=== PATIENT | male | born 1980 | race Hispanic/Latino ===

== ENCOUNTER 2017-09-09 10:02 | Emergency (ER) | payer BC ==
[2017-09-09] MEDS ORDERED: DEXAMETHASONE SOD PHOSPHATE 10MG/ML 1ML VIAL ONE (11:27)
[2017-09-09] MEDS ORDERED: IPRATROPIUM/ALBUTEROL SULFATE 3 ML SOLUTION IH ONE (11:36)
== END 2017-09-09 12:23 | disposition home or self-care (01) ==
LOC: EDH 10:02
DX: J20.9 Acute bronchitis, unspecified (principal); I10 Essential (primary) hypertension; Z88.0 Allergy status to penicillin; Z98.890 Other specified postprocedural states
CPT/HCPCS: 94640; 96372; 99283; J1100

== ENCOUNTER 2019-01-23 14:00 | Emergency (ER) | payer BC ==
[2019-01-23 15:10] LABS: RAPID GROUP A STREP NEGATIVE (NEGATIVE)
[2019-01-23] MEDS ORDERED: CLONIDINE HCL 0.1 MG TABLET ONE (15:26)
== END 2019-01-23 16:41 | disposition home or self-care (01) ==
LOC: EDH 14:00
DX: J06.9 Acute upper respiratory infection, unspecified (principal); I10 Essential (primary) hypertension; Z88.0 Allergy status to penicillin
CPT/HCPCS: 87804; 87880

== ENCOUNTER 2020-10-16 06:32 | Day surgery (SDC) | payer BC ==
[2020-10-10 10:58] LABS: BASOPHILS % (AUTO) 0.8 % (0.0-5.0); EOSINOPHILS % (AUTO) 2.4 % (0.0-8.0); HEMATOCRIT 34.7 % (42-54); LYMPHOCYTES % (AUTO) 19.3 % (21.0-51.0); MEAN CORPUSCULAR HEMOGLOBIN 29.2 pg (27.0-33.0); MEAN CORPUSCULAR VOLUME 85.9 fL (79-99); MONOCYTES % (AUTO) 6.1 % (3.0-13.0); NEUTROPHILS % (AUTO) 71.1 % (40.0-77.0); PLATELET COUNT (AUTO) 339 K/uL (130-400); RED BLOOD CELL COUNT(AUTO) 4.04 MIL/uL (4.50-6.20); RED CELL DISTRIBUTION WIDTH 12.5 % (11.0-15.5); WHITE BLOOD COUNT (AUTO) 6.2 K/uL (4.8-10.8)
[2020-10-10 11:24] LABS: CREATININE 3.9 mg/dL (0.5-1.5); POTASSIUM 4.1 mmol/L (3.5-5.1)
[2020-10-13 10:13] VITALS: BP 160/99
[~2020-10-16] VITALS: Ht 165.1 cm; Wt 65.3 kg
[2020-10-16] VITALS (18 sets, daily range): BP systolic 115–178; BP diastolic 58–120
[~2020-10-16 06:32] MED LIST: ATOR10 PO; CARV12.511 PO; CLINDAMYCIN 900 MG/D5% WATER 50 ML IV SCH; CLON0.5T4 PO; LEVO50CA4 PO; MINO2.5T3 PO; OLME40TA18 PO
[2020-10-16] MEDS ORDERED: LACTATED RINGERS 1000ML 1,000 ML IV ONE (07:15)
[2020-10-16] MEDS ORDERED: MIDAZOLAM HCL 1 MG/ML 2ML VIAL ONE (07:47)
[2020-10-16] MEDS ORDERED: SUCCINYLCHOLINE CHLORIDE 20 MG/ML 10 ML VIAL ONE (08:58)
[2020-10-16] MEDS ORDERED: LIDOCAINE PF 2% 5ML ABBOJECT ONE (08:58)
[2020-10-16] MEDS ORDERED: PROPOFOL 10 MG/ML 20ML VIAL IV ONE (08:59)
[2020-10-16] MEDS ORDERED: ROCURONIUM 10MG/1ML SYR 10 MG/ML ML ONE (09:00)
[2020-10-16] MEDS ORDERED: FENTANYL CITRATE PF 50 MCG/1 ML 2ML VIAL ONE (09:00)
[2020-10-16] MEDS ORDERED: LABETALOL HCL 5 MG/ML 20ML VIAL IV ONE (13:11)
[2020-10-16] MEDS ORDERED: GLYCOPYRROLATE 1 MG/5 ML SYRINGE ONE ×2 (13:17→13:32)
[2020-10-16] MEDS ORDERED: EPHEDRINE SULFATE 50 MG/ML AMPULE ONE (13:22)
[2020-10-16] MEDS ORDERED: BUPIVACAINE/PF 0.5% 30ML VIAL ONE (13:31)
[2020-10-16] MEDS ORDERED: NEOSTIGMINE 5MG/5ML SYR IV ONE (13:32)
== END 2020-10-16 15:43 | disposition home or self-care (01) ==
LOC: DAH 06:32
PROVIDERS: ATTEND Surgery
DX: K42.9 Umbilical hernia without obstruction or gangrene (principal); Z20.822 Contact with and (suspected) exposure to COVID-19; I10 Essential (primary) hypertension; E07.9 Disorder of thyroid, unspecified; E78.5 Hyperlipidemia, unspecified; Z88.0 Allergy status to penicillin; Z98.890 Other specified postprocedural states; Z79.899 Other long term (current) drug therapy; Z79.890 Hormone replacement therapy
CPT/HCPCS: 36415; 49585; 80048; 85025; A4215; A4221; A4222; A4223; A4452; A4663; A4930; C9803; J0330; J2001; J2250; J2704; J2710; J3010; J3490 ×6; J7120; U0003

== ENCOUNTER 2023-03-05 23:17 | Inpatient (IN) | payer OTHER ==
[~2023-03-05] VITALS: Ht 167.6 cm; Wt 56.8 kg
[~2023-03-05 23:17] MED LIST changes: -CARV12.511 PO; -CLINDAMYCIN 900 MG/D5% WATER 50 ML IV SCH; -LEVO50CA4 PO; +LEVO75CA5 PO; +LISI20TA24 PO; +METO25 PO; -MINO2.5T3 PO; -OLME40TA18 PO; +TRAM50TA4 PO
[2023-03-05 23:51] LABS: EOSINOPHILS % (AUTO) 5.7 % (0.0-8.0); HEMATOCRIT 34.5 % (42-54); LYMPHOCYTES % (AUTO) 19.8 % (21.0-51.0); MEAN CORPUSCULAR HEMOGLOBIN 29.5 pg (27.0-33.0); MEAN CORPUSCULAR VOLUME 89.1 fL (79-99); MONOCYTES % (AUTO) 14.8 % (3.0-13.0); NEUTROPHILS % (AUTO) 58.2 % (40.0-77.0); PLATELET COUNT (AUTO) 331 K/uL (130-400); RED BLOOD CELL COUNT(AUTO) 3.87 MIL/uL (4.50-6.20); RED CELL DISTRIBUTION WIDTH 14.3 % (11.0-15.5); WHITE BLOOD COUNT (AUTO) 8.4 K/uL (4.8-10.8)
[2023-03-06] MEDS ORDERED: ONDANSETRON 4MG INJ IVP ONE
[2023-03-06] MEDS ORDERED: METOPROLOL TARTRATE 1 MG/ML 5ML VIAL IV ONE
[2023-03-06 00:05] LABS: CREATININE 4.9 mg/dL (0.5-1.5); POTASSIUM 3.1 mmol/L (3.5-5.1)
[2023-03-06 00:06] LABS: INR 0.96 (0.85-1.15); PROTHROMBIN TIME 11.2 SEC (9.6-11.6)
[2023-03-06 00:07] LABS: PARTIAL THROMBOPLASTIN TIME 29.6 SEC (26.3-35.5)
[2023-03-06 00:17] LABS: ALBUMIN 4.1 g/dL (3.5-5.0); MAGNESIUM 2.2 mg/dL (1.80-2.40); THYROID STIMULATING HORMONE 0.54 uIU/mL (0.36-3.74)
[2023-03-06] MEDS: HALOPERIDOL INJ 5 MG/ML VIAL IV SCH ×2 (00:35→23:55)
[2023-03-06] MEDS ORDERED: PROMETHAZINE HCL 25 MG/ML 1ML AMPULE IM ONE ×2 (01:49→02:00)
[2023-03-06] MEDS ORDERED: ACETAMINOPHEN 325 MG TAB PO PRN ×2 (04:00)
[2023-03-06] MEDS ORDERED: ONDANSETRON 4MG INJ IV PRN (04:00)
[2023-03-06 06:20] VITALS: BP 118/77
[2023-03-06] MEDS ORDERED: ATOR40TA71 PO (06:23)
[2023-03-06] MEDS ORDERED: TRAMADOL HCL 50 MG TABLET PO PRN (07:00)
[2023-03-06] MEDS ORDERED: CLONAZEPAM 0.5 MG TABLET PO PRN (07:00)
[2023-03-06 07:20] LABS: BASOPHILS % (AUTO) 0.7 % (0.0-5.0); EOSINOPHILS % (AUTO) 3.8 % (0.0-8.0); HEMATOCRIT 36.7 % (42-54); LYMPHOCYTES % (AUTO) 16.7 % (21.0-51.0); MEAN CORPUSCULAR HEMOGLOBIN 29.2 pg (27.0-33.0); MEAN CORPUSCULAR HGB CONC 31.9 g/dL (32.0-36.0); MEAN CORPUSCULAR VOLUME 91.5 fL (79-99); MONOCYTES % (AUTO) 14.4 % (3.0-13.0); NEUTROPHILS % (AUTO) 64.1 % (40.0-77.0); PLATELET COUNT (AUTO) 312 K/uL (130-400); RED BLOOD CELL COUNT(AUTO) 4.01 MIL/uL (4.50-6.20); RED CELL DISTRIBUTION WIDTH 14.5 % (11.0-15.5); WHITE BLOOD COUNT (AUTO) 7.4 K/uL (4.8-10.8)
[2023-03-06] MEDS ORDERED: NON-FORMULARY MEDICATION 1 EACH (Levothyroxine Sodium (Levothyroxine) 75 MCG) PO SCH (07:30)
[2023-03-06 07:46] LABS: CRP QUANTITATIVE 8.6 mg/L (0.00-9.0); POTASSIUM 3.7 mmol/L (3.5-5.1); TOTAL PROTEIN, SERUM 7.8 g/dL (6.0-8.3)
[2023-03-06 08:00] VITALS: BP 146/80
[2023-03-06 08:27] LABS: ERYTHROCYTE SEDIMENTATION RATE 35 MM/HR (0-15)
[2023-03-06] MEDS: HEPARIN 5,000 UNIT VIAL SQ SCH ×2 (09:01→20:57)
[2023-03-06] MEDS: METOPROLOL TARTRATE 25 MG TAB PO SCH ×2 (09:02→20:56)
[2023-03-06] MEDS: PANTOPRAZOLE 40 MG/VIAL IVP SCH (09:02)
[2023-03-06 11:46] VITALS: BP 96/57
[2023-03-06 16:00] VITALS: BP 98/67
[2023-03-06] MEDS: SEVELAMER HCL 800 MG TABLET PO SCH (18:03)
[2023-03-06 20:00] VITALS: BP 93/55
[2023-03-06] MEDS ORDERED: ATORVASTATIN 40 MG TABLET PO SCH (21:00)
[2023-03-07] VITALS (19 sets, daily range): BP systolic 79–129; BP diastolic 50–87
[2023-03-07 05:21] LABS: HEMATOCRIT 32.9 % (42-54); MEAN CORPUSCULAR HGB CONC 31.9 g/dL (32.0-36.0); MEAN CORPUSCULAR VOLUME 90.9 fL (79-99); RED BLOOD CELL COUNT(AUTO) 3.62 MIL/uL (4.50-6.20); RED CELL DISTRIBUTION WIDTH 14.1 % (11.0-15.5); WHITE BLOOD COUNT (AUTO) 6.4 K/uL (4.8-10.8)
[2023-03-07 05:44] LABS: MAGNESIUM 2.5 mg/dL (1.80-2.40); PHOSPHORUS 10.1 mg/dL (2.5-4.9); POTASSIUM 3.7 mmol/L (3.5-5.1)
[2023-03-07 05:48] LABS: CREATININE 9.5 mg/dL (0.5-1.5)
[2023-03-07] MEDS ORDERED: LEVOTHYROXINE 75 MCG TABLET PO SCH (06:30)
[2023-03-07] MEDS: PANTOPRAZOLE 40 MG/VIAL IVP SCH (08:00)
[2023-03-07] MEDS: SEVELAMER HCL 800 MG TABLET PO SCH ×3 (08:00→17:00)
[2023-03-07] MEDS: METOPROLOL TARTRATE 25 MG TAB PO SCH (08:00)
[2023-03-07] MEDS: HEPARIN 5,000 UNIT VIAL SQ SCH (08:19)
[2023-03-07] MEDS ORDERED: HEPARIN 5,000 UNIT VIAL IRRIG PRN (19:00)
== END 2023-03-07 18:50 | disposition home or self-care (01) | DRG 682 ==
LOC: EDH 23:17 → EDHIP 23:18 → 3DH 03-06 06:17
PROVIDERS: ADMIT Hospitalist; ATTEND Hospitalist
PROC: 5A1D70Z Performance of Urinary Filtration, Intermittent, Less than 6 Hours Per Day (ICD-10-PCS; principal; 2023-03-07)
DX: I12.0 Hypertensive chronic kidney disease with stage 5 chronic kidney disease or end stage renal disease (principal); N18.6 End stage renal disease; D63.1 Anemia in chronic kidney disease; E03.9 Hypothyroidism, unspecified; F41.9 Anxiety disorder, unspecified; E78.00 Pure hypercholesterolemia, unspecified; K21.9 Gastro-esophageal reflux disease without esophagitis; K44.9 Diaphragmatic hernia without obstruction or gangrene; Z85.47 Personal history of malignant neoplasm of testis; Z99.2 Dependence on renal dialysis
CPT/HCPCS: 36415; 71045; 74176; 80048; 80053; 82728; 83540; 83550; 83615; 83735; 83880; 84100; 84443; 84484; 85025; 85027; 85610; 85651; 85730; 86140; 90935; 93005; C9113; G0378; J1630; J1644; J2405; J2550; J3490

== ENCOUNTER 2023-06-03 10:54 | Day surgery (SDC) | payer MEDICARE ==
[2023-05-30 11:14] LABS: HEMATOCRIT 38.6 % (42-54); MEAN CORPUSCULAR HEMOGLOBIN 30.9 pg (27.0-33.0); MEAN CORPUSCULAR HGB CONC 34.7 g/dL (32.0-36.0); MEAN CORPUSCULAR VOLUME 88.9 fL (79-99); PLATELET COUNT (AUTO) 231 K/uL (130-400); RED BLOOD CELL COUNT(AUTO) 4.34 MIL/uL (4.50-6.20); RED CELL DISTRIBUTION WIDTH 13.3 % (11.0-15.5); WHITE BLOOD COUNT (AUTO) 5.5 K/uL (4.8-10.8)
[2023-05-30 11:16] VITALS: BP 170/95; PULSE 77; RESP 18
[2023-05-30 11:31] LABS: INR 0.95 (0.85-1.15); PROTHROMBIN TIME 11.1 SEC (9.6-11.6)
[2023-05-30 11:32] LABS: POTASSIUM 3.6 mmol/L (3.5-5.1)
[2023-05-30 11:33] LABS: PARTIAL THROMBOPLASTIN TIME 27.2 SEC (26.3-35.5)
[2023-05-30 11:38] LABS: CREATININE 8.2 mg/dL (0.5-1.5)
[2023-05-30 11:46] LABS: LYMPHOCYTES % (MANUAL) 22 % (22-44); MAN.DIFF COMMENT-IMPRESSION MANUAL DIFFERENTIAL; MONOCYTES % (MANUAL) 5 % (2-9); PLATELET MORPHOLOGY COMMENT ADEQUATE; SEGMENTED NEUTROPHILS % 73 % (40-70); TOTAL CELLS COUNTED 100
[~2023-06-03] VITALS: Ht 167.6 cm; Wt 58.0 kg
[2023-06-03] VITALS (17 sets, daily range): BP systolic 109–160; BP diastolic 58–111; PULSE 65–97; RESP 13–18
[~2023-06-03 10:54] MED LIST changes: -ATOR10 PO; +ATOR40TA71 PO; +BUSP5TAB3 PO; -CLON0.5T4 PO; +ESOM20CA31 PO; +LEVO100T12 PO; -LEVO75CA5 PO; -LISI20TA24 PO; -METO25 PO; -TRAM50TA4 PO
[2023-06-03] MEDS ORDERED: 0.9% NACL 500ML IV.SOLN 500 ML IV ONE (11:26)
[2023-06-03 11:56] LABS: CREATININE 6.7 mg/dL (0.5-1.5); POTASSIUM 3.2 mmol/L (3.5-5.1)
[2023-06-03] MEDS ORDERED: CLINDAMYCIN IVPB 600MG/50ML 50 ML IV ONE (12:56)
[2023-06-03] MEDS ORDERED: ROCURONIUM 10MG/1ML SYR 10 MG/ML ML ONE (12:58)
[2023-06-03] MEDS ORDERED: PROPOFOL 10 MG/ML 20ML VIAL IV ONE (12:58)
[2023-06-03] MEDS ORDERED: SUCCINYLCHOLINE 200MG/10ML SYR ONE (12:58)
[2023-06-03] MEDS ORDERED: MIDAZOLAM HCL 1 MG/ML 2ML VIAL ONE (12:58)
[2023-06-03] MEDS ORDERED: GLYCOPYRROLATE 1 MG/5 ML SYRINGE ONE (12:58)
[2023-06-03] MEDS ORDERED: NEOSTIGMINE 5MG/5ML SYR IV ONE (12:58)
[2023-06-03] MEDS ORDERED: LIDOCAINE PF 100MG/5ML (2%) SYRINGE 5ML ONE (12:58)
[2023-06-03] MEDS ORDERED: DEXAMETHASONE SOD PHOSPHATE 10MG/ML 1ML VIAL ONE (12:58)
[2023-06-03] MEDS ORDERED: ONDANSETRON 4MG INJ ONE (12:58)
[2023-06-03] MEDS ORDERED: FENTANYL CITRATE PF 50 MCG/1 ML 2ML VIAL ONE (12:59)
[2023-06-03] MEDS ORDERED: CEFAZOLIN SODIUM 1 GM VIAL ONE (13:52)
[2023-06-03] MEDS ORDERED: LIDOCAINE 1%-EPI 1:100,000 20 ML VIAL IJ ONE ×2 (13:53→14:00)
[2023-06-03] MEDS ORDERED: BUPIVACAINE/PF 0.25% 30ML VIAL IJ ONE (13:53)
[2023-06-03] MEDS ORDERED: BUPIVACAINE/PF 0.5% 30ML VIAL IV ONE (14:01)
[2023-06-03] MEDS ORDERED: CEFAZOLIN SODIUM 1 GM VIAL IVPB ONE (14:03)
[2023-06-03] MEDS ORDERED: HEPARIN 1,000 UNIT VIAL ONE (14:56)
[2023-06-03] MEDS ORDERED: HEPARIN 10,000 UNIT/10ML (1,000 UNIT/ML) VIAL ONE (14:57)
[2023-06-03] MEDS ORDERED: PHENYLEPHRINE HCL 10 MG/ML 1ML VIAL IV ONE (15:21)
== END 2023-06-03 17:35 | disposition home or self-care (01) ==
LOC: DAH 10:54
PROVIDERS: ATTEND Thoracic Surgery (Cardiothoracic Vascular Surgery)
DX: T82.868A Thrombosis due to vascular prosthetic devices, implants and grafts, initial encounter (principal); I12.0 Hypertensive chronic kidney disease with stage 5 chronic kidney disease or end stage renal disease; N18.6 End stage renal disease; I77.0 Arteriovenous fistula, acquired; E05.90 Thyrotoxicosis, unspecified without thyrotoxic crisis or storm; F41.9 Anxiety disorder, unspecified; E78.5 Hyperlipidemia, unspecified; Z88.0 Allergy status to penicillin; Z79.01 Long term (current) use of anticoagulants; Z79.899 Other long term (current) drug therapy; Y83.2 Surgical operation with anastomosis, bypass or graft as the cause of abnormal reaction of the patient, or of later complication, without mention of misadventure at the time of the procedure; Y92.89 Other specified places as the place of occurrence of the external cause
CPT/HCPCS: 80048 ×2; 85025; 85610; 85730; 86850 ×2; 86900 ×2; 86901 ×2; 36415 ×2; 71045; 36830; 82948; A6260; A4663; A6207; J7030; A4452; J7040; J3010; J0690 ×2; J3490 ×6; J0330; J1100; J2710; J2001; J1644 ×2; J2250; J2704; J2405; J2371; A4649 ×2; C1713 ×2; A4930; C1768; A4215; A4223; A4222; A4221; G0168

== ENCOUNTER → 2023-06-19 | Outpatient (CLI) | payer MEDICARE | END | disposition home or self-care (01) | LOC: RAH 14:27 | PROVIDERS: ATTEND Thoracic Surgery (Cardiothoracic Vascular Surgery) | DX: T82.868A Thrombosis due to vascular prosthetic devices, implants and grafts, initial encounter (principal); I82.622 Acute embolism and thrombosis of deep veins of left upper extremity; I82.612 Acute embolism and thrombosis of superficial veins of left upper extremity; N18.6 End stage renal disease; Z99.2 Dependence on renal dialysis; Y93.89 Activity, other specified; Y92.89 Other specified places as the place of occurrence of the external cause | CPT/HCPCS: 93971 ==

== ENCOUNTER → 2023-10-08 | Outpatient (CLI) | payer MEDICARE ==
[2023-10-08 10:28] LABS: CREATININE 8.7 mg/dL (0.5-1.5)
== END | disposition home or self-care (01) ==
LOC: LAB 09:14
PROVIDERS: ATTEND Student in an Organized Health Care Education/Training Program
DX: N18.6 End stage renal disease (principal)
CPT/HCPCS: 36415; 82565; 84520

== ENCOUNTER → 2023-10-20 | Outpatient (CLI) | payer MEDICARE ==
[~2023-10-20] MED LIST changes: +IOHEXOL-350 75 ML VIAL IV ONE
== END | disposition home or self-care (01) ==
LOC: RAH 10-08 08:42
PROVIDERS: ATTEND Student in an Organized Health Care Education/Training Program
DX: N18.6 End stage renal disease (principal); N28.89 Other specified disorders of kidney and ureter; Q61.3 Polycystic kidney, unspecified
CPT/HCPCS: 75635; Q9967